=== PATIENT | female | born 1990 | race Caucasian/White ===

== ENCOUNTER 2020-06-17 07:22 | Day surgery (SDC) | payer OTHER ==
[2020-06-10 14:57] LABS: BASOPHILS % (AUTO) 0.5 % (0-1); EOSINOPHILS # (AUTO) 0.1 X10'3 (0-0.9); EOSINOPHILS % (AUTO) 1.2 % (0-6); LYMPHOCYTES % (AUTO) 36.6 % (21-51); MEAN CORPUSCULAR HEMOGLOBIN 30.2 PG (27.0-31.0); MEAN CORPUSCULAR HGB CONC 34.2 g/dL (33.0-36.5); MEAN CORPUSCULAR VOLUME 88.4 FL (78-98); MEAN PLATELET VOLUME 11.2 FL (7.4-10.4); MONOCYTES # (AUTO) 0.3 X10'3 (0-0.9); MONOCYTES % (AUTO) 6.2 % (2-12); NEUTROPHILS % (AUTO) 55.5 % (42-75); PRE OP HEMOGLOBIN 13.4 g/dL (12.0-16.0); PRE OP PLATELET COUNT 148 X10'3 (140-440); RED BLOOD COUNT 4.42 X10'6 (4.20-5.60); RED CELL DISTRIBUTION WIDTH 12.5 % (11.5-14.5)
[2020-06-10 15:28] LABS: HCG SERUM QL NEGATIVE
[2020-06-10 16:48] LABS: LARGE PLATELETS FEW; PLATELET ESTIMATE NORMAL
[2020-06-17] VITALS (10 sets, daily range): BP systolic 15–125; BP diastolic 63–69
[~2020-06-17] VITALS: Ht 167.6 cm; Wt 96.0 kg
[~2020-06-17 07:22] MED LIST: BUPIVAcaine/PF 2.5 mg/ml (0.25%) 30ml vial ONE; NO HOME MEDS; ceFAZolin 2gm in dextrose, iso 50 ML IV ONE; famotidine 20mg tablet PO ONE; ringers solution, lacted 1,000 ML IV SCH
[2020-06-17] MEDS ORDERED: meperidine/PF 25mg/ml syringe IV PRN ×3 (08:40)
[2020-06-17] MEDS ORDERED: proCHLORperazine 10 MG/2 ml inj IV PRN (08:40)
[2020-06-17] MEDS ORDERED: morphine 4 MG/ML inj SYRINge IV PRN (08:40)
[2020-06-17] MEDS ORDERED: morphine 2 MG/ML inj. syringe IV PRN (08:40)
[2020-06-17] MEDS ORDERED: ondansetron/PF 4mg/2ml inj IV PRN (08:40)
[2020-06-17] MEDS ORDERED: ringers solution, lacted 1,000 ML IV SCH (08:40)
[2020-06-17] MEDS ORDERED: sevoflurane 250ml liquid IH ONE (08:48)
[2020-06-17] MEDS ORDERED: fentaNYL/PF 50MCG/1 ML 2ML syringe ONE (08:48)
[2020-06-17] MEDS ORDERED: propofol inj 20 ML IV ONE (08:49)
[2020-06-17] MEDS ORDERED: rocuronium 10mg/ml inj IV ONE (08:49)
[2020-06-17] MEDS ORDERED: midazolam 2 mg/2 ml injection ONE (08:49)
[2020-06-17] MEDS ORDERED: dexamethasone sod phosphate 4mg/ml inj. ONE (09:12)
[2020-06-17] MEDS ORDERED: ondansetron/PF 4mg/2ml inj ONE (09:12)
[2020-06-17] MEDS ORDERED: neostigmine methylsulfate 1 MG/ML 10ml vial ONE (09:39)
[2020-06-17] MEDS ORDERED: glycopyrrolate 0.2mg/ml inj ONE (09:39)
[2020-06-17] MEDS ORDERED: ketorolac trometh. 30mg/ml inj. ONE (09:40)
--- NOTE | 2020-06-17 10:05 | NUR ---
Received from OR via BED , accompanied by Anesthesiologist DR ALMAGUER and report given by Anesthesiolgist. PATIENT WAKING UP, DENIES, V/S WNL, NEUROVASCULAR CHECKS INTACT, 20G PIV RUE, SCD ON, DEMABONDED TO LAP SIGHTS OF ABDOMEN AND WITH PERIPAD WITH SCANT DRAINAGE CDI.
--- NOTE | 2020-06-17 11:25 | NUR ---
PATIENT A&OX4, DENIES PAIN, V/S WNL, NEUROVASCULAR CHECKS INTACT, 20G PIV LUE D/C WITH NO COMPLICATIONS OBSERVED, SCD OFF, BANDAIDS TO LAP SIGHTS OF ABDOMEN CDI. FRESH ANGELIA PAD GIVEN TO PATIENT. I HAVE REVIEWED D/C INSTRUCTIONS WITH PATIENT AND FAMILY AND THEY HAVE VERBALIZED UNDERSTANDING. PATIENT D/C HOME WITH FAMILY TO TRANSPORT AND ALL BELONGINGS..
== END 2020-06-17 11:25 | disposition home or self-care (01) ==
LOC: PAS 07:22
PROVIDERS: ATTEND Obstetrics & Gynecology
DX: Z30.2 Encounter for sterilization (principal); N92.0 Excessive and frequent menstruation with regular cycle; E66.9 Obesity, unspecified; Z68.34 Body mass index [BMI] 34.0-34.9, adult; Z20.828 Contact with and (suspected) exposure to other viral communicable diseases; Z79.899 Other long term (current) drug therapy
CPT/HCPCS: 36415; 58563; 58670; 82948; 84703; 85025; 87635; A6258; J1100; J1885; J2250; J2405; J2704; J2710; J3010; J3490; J7120; 85008; A4264; A4355; A4618; A6402; A7000